=== PATIENT | female | born 1960 | race Caucasian/White ===

== ENCOUNTER → 2019-06-10 16:45 | Outpatient (CLI) | payer OTHER, SELFPAY ==
[2019-06-10 17:40] LABS: Add Manual Diff / Slide Review NO; Basophils Absolute Auto 0 /uL (0-100); Basophils Percent Auto 0.6 % (0-2); Eosinophils Absolute Auto 0 /uL (0-450); Eosinophils Percent Auto 0.6 % (2-4); Hematocrit 42.4 % (36-46); Hemoglobin 14.8 g/dL (12.0-16.0); Lymphocytes Absolute Auto 1600 /uL (1100-4500); Lymphocytes Percent Auto 25.4 % (25-40); Mean Corpuscular HGB Conc 34.8 % (30-36); Mean Corpuscular Hemoglobin 32.2 PG (26-34); Mean Corpuscular Volume 92.7 fL (80-100); Monocytes Absolute Auto 400 /uL (0-900); Monocytes Percent Auto 6.5 % (3-14); Neutrophils Absolute Auto 4300 /uL (1500-7000); Neutrophils Percent Auto 66.9 % (50-75); Platelet Count 229 X10^3/uL (150-400); Red Blood Cell Count 4.58 X10^6/uL (4.0-5.2); Red Cell Distribution Width 12.8 % (11.6-14.8); White Blood Cell Count 6.4 X10^3/uL (4.5-11.0)
[2019-06-10 18:00] LABS: Alanine Aminotransferase 15 IU/L (9-52); Albumin 4.8 g/dL (3.5-5.0); Albumin Globulin Ratio 1.6 (1.0-2.8); Alkaline Phosphatase 90 U/L (38-126); Aspartate Aminotransferase 24 IU/L (14-36); BUN Creatinine Ratio 21.4 (6-22); Bilirubin Total 0.4 mg/dL (0.2-1.3); Blood Urea Nitrogen 15 mg/dL (7-17); Calcium 10.1 mg/dL (8.4-10.2); Carbon Dioxide 25 mmol/L (22-32); Chloride 102 mmol/L (98-107); Estimated Glomerular Filt Rate > 60.0 mL/min (>60); Glucose 94 mg/dL (70-100); HEMOLYSIS < 15 (0-50); Potassium 4.6 mmol/L (3.4-5.1); Sodium 140 mmol/L (137-145); Total Protein 7.8 g/dL (6.3-8.2)
[2019-06-10 18:17] LABS: Vitamin D 25 Hydroxy (D3) 34.8 ng/mL (30.0-100.0)
[2019-06-10 18:31] LABS: Thyroid Stimulating Hormone 3.78 uIU/mL (0.47-4.68)
[2019-06-10 18:52] LABS: Erythrocyte Sedimentation Rate 11 MM/HR (0-20)
[2019-06-10 19:06] LABS: Folate 8.5 ng/mL (2.76-20.0)
== END ==
PROVIDERS: PCP Family Medicine; Visit Provider Family Medicine
DX: G47.00 Insomnia, unspecified (principal); R00.0 Tachycardia, unspecified; E03.9 Hypothyroidism, unspecified; R00.2 Palpitations
CPT/HCPCS: 36415; 80053; 82306; 82746; 84443; 85025; 85651

== ENCOUNTER → 2020-02-16 13:39 | Outpatient (CLI) | payer OTHER, SELFPAY ==
--- NOTE | 2020-02-16 | DI.RAD.S_ITS ---
PROCEDURE: XR CERVICAL SPINE 4V OR 5V INDICATIONS: CERVICAL SPINE PAIN WITH RADICULOPATHY TECHNIQUE: 5 total views of the cervical spine were acquired, including bilateral oblique views. COMPARISON: [facility], , MR CERVICAL SPINE WO CON, 02/16/2020, 13:56. (A prior cervical spine plain film from 2009 is not available from the archive for review at the time of this dictation.) FINDINGS: Bones: No fractures or dislocations to the T1 level. Oblique images demonstrate no bony foraminal stenoses. There is straightening of the normal cervical lordosis. No focal AP alignment abnormality is seen. Soft tissues: No prevertebral soft tissue swelling. The visualized lung apices are unremarkable. IMPRESSION: Straightening of the normal cervical lordosis is seen, which is commonly observed in patients with muscular spasm. Dictated by: Steve Minaya M.D. on 02/16/2020 at 14:23 Approved by: Steve Minaya M.D. on 02/16/2020 at 14:28
--- NOTE | 2020-02-16 | DI.MRI.S_ITS ---
PROCEDURE: MR CERVICAL SPINE WO CON INDICATIONS: CERVICAL DISC DISORDER TECHNIQUE: Noncontrast sagittal T1 spin echo and T2 fast spin echo, sagittal STIR, foraminal oblique sagittal T2 fast spin echo, and axial gradient echo or T2 fast spin echo through the cervical spine. COMPARISON: None. FINDINGS: Image quality: Excellent. Alignment and Curvature: There is normal bony alignment. Bone Marrow: Marrow demonstrates normal overall signal. Spinal Cord: Visualized spinal cord has normal size and signal. No cerebellar tonsillar herniation. Paraspinous Soft Tissues: No paravertebral masses. Prevertebral soft tissues are normal in thickness. C2-C3: Mild disc desiccation. Mild bilateral facet hypertrophy. Mild canal stenosis. Mild bilateral foraminal stenosis. C3-C4: Mild disc desiccation. Mild diffuse disc bulge. Mild facet and uncovertebral hypertrophy. Mild canal stenosis. Mild left foraminal stenosis. No right foraminal stenosis. C4-C5: Mild disc desiccation and diffuse disc bulge. Mild facet and uncovertebral hypertrophy bilaterally. Mild canal stenosis. Mild bilateral foraminal stenosis. C5-C6: Mild disc desiccation and diffuse disc bulge. Mild facet and uncovertebral hypertrophy bilaterally. Moderate canal stenosis. Mild bilateral foraminal stenosis. C6-C7: Mild disc desiccation and diffuse disc bulge. Mild facet and uncovertebral hypertrophy bilaterally. Mild canal stenosis. No foraminal stenosis. C7-T1: Normal appearance. IMPRESSION: 1. Multilevel degenerative disc and facet disease, as well as uncovertebral hypertrophy. 2. Mild multilevel canal and foraminal stenoses. No neural impingement. Dictated by: George Hudson M.D. on 02/16/2020 at 15:07 Approved by: George Hudson M.D. on 02/16/2020 at 15:11
== END ==
PROVIDERS: PCP Family Medicine; Referring Provider Family Medicine; Visit Provider Family Medicine
DX: M50.11 Cervical disc disorder with radiculopathy, high cervical region (principal); M48.02 Spinal stenosis, cervical region
CPT/HCPCS: 72050; 72141

== ENCOUNTER 2020-07-27 20:14 | Emergency (ER) | payer OTHER, SELFPAY ==
[2020-07-27 20:20] VITALS: BP 209/103; PULSE 133; PULSE 136; RESP 17; TEMP 36.7; O2SAT 98; O2SAT 99; BMI 23.2
--- NOTE | 2020-07-27 20:22 | DI.RAD.S_ITS ---
PROCEDURE: XR CHEST 1V INDICATIONS: chest pain TECHNIQUE: One view of the chest was acquired. COMPARISON: None. FINDINGS: Surgical changes and devices: None. Lungs and pleura: Lungs are clear. No pleural effusions or pneumothorax. Mediastinum: Mediastinal contours appear normal. Heart size is normal. Bones and chest wall: No suspicious bony lesions. Overlying soft tissues appear unremarkable. IMPRESSION: Normal for age, source of current chest pain symptoms is not seen. Dictated by: Tc Luo M.D. on 07/27/2020 at 21:16 Approved by: Tc Luo M.D. on 07/27/2020 at 21:16
[2020-07-27 20:30] VITALS: BP 196/99; PULSE 126; RESP 21; O2SAT 98
[2020-07-27 20:35] LABS: Add Manual Diff / Slide Review NO; Basophils Absolute Auto 100 /uL (0-100); Basophils Percent Auto 0.6 % (0-2); Eosinophils Absolute Auto 100 /uL (0-450); Eosinophils Percent Auto 1.5 % (2-4); Hematocrit 40.4 % (36-46); Hemoglobin 14.1 g/dL (12.0-16.0); Lymphocytes Absolute Auto 3800 /uL (1100-4500); Lymphocytes Percent Auto 45.4 % (25-40); Mean Corpuscular Volume 91.6 fL (80-100); Monocytes Absolute Auto 900 /uL (0-900); Monocytes Percent Auto 10.3 % (3-14); Neutrophils Absolute Auto 3500 /uL (1500-7000); Neutrophils Percent Auto 42.2 % (50-75); Platelet Count 236 X10^3/uL (150-400); Red Blood Cell Count 4.41 X10^6/uL (4.0-5.2); Red Cell Distribution Width 12.9 % (11.6-14.8); White Blood Cell Count 8.3 X10^3/uL (4.5-11.0)
[2020-07-27 20:43] LABS: INR 0.9 (0.9-1.3); Prothrombin Time 10.8 SECONDS (10.1-12.7)
[2020-07-27 20:46] LABS: PTT Partial Thromboplastin Tim 36 SECONDS (26.4-36.2)
[2020-07-27 20:48] LABS: Alanine Aminotransferase 26 IU/L (<35); Albumin 4.7 g/dL (3.5-5.0); Albumin Globulin Ratio 1.4 (1.0-2.8); Alkaline Phosphatase 102 U/L (38-126); Aspartate Aminotransferase 38 IU/L (14-36); BUN Creatinine Ratio 25.9 (6-22); Bilirubin Total 0.3 mg/dL (0.2-1.3); Blood Urea Nitrogen 21 mg/dL (7-17); Calcium 9.4 mg/dL (8.4-10.2); Carbon Dioxide 26 mmol/L (22-32); Chloride 102 mmol/L (98-107); Creatine Kinase 69 U/L (30-135); Estimated Glomerular Filt Rate > 60.0 mL/min (>60); Globulin 3.3 g/dL (1.7-4.1); Glucose 121 mg/dL (80-110); HEMOLYSIS 27 (0-50); Lipase 113 U/L (23-300); Magnesium 1.9 mg/dL (1.6-2.3); Potassium 3.6 mmol/L (3.4-5.1); Sodium 136 mmol/L (137-145)
[2020-07-27 20:59] LABS: Troponin I < 0.012 ng/mL (0.01-0.034)
[2020-07-27 21:00] VITALS: BP 179/86; PULSE 108; RESP 12; O2SAT 97
--- NOTE | 2020-07-27 21:18 | ED.ARRPALP ---
HPI - Arrhythmia/Palpitations General Chief Complaint: Arrhythmia/Palpitations Stated Complaint: RAPID HEART BEAT Time Seen by Provider: 07/27/20 20:23 Source: patient Mode of arrival: Ambulatory Limitations: no limitations History of Present Illness HPI narrative: Patient drove herself here. Complaints of palpitations/fast heartbeat. This has happened before. 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 Chawla in [place]. Patient states 1 year ago the same thing happen after her [id number] cooked and had shrimp in it. She is allergic to iodine. Was seen here for the same. Patient states feeling much better now. Heart rate 99. Feels less palpitations. Patient states tonight at 6:00 p.m. she ate at a restaurant and had fish and chips and unfortunately it was fried in with shrimp. Returned home around 7:00 p.m. at 7:30 p.m. immediately felt palpitations without chest pain dizziness or syncope. No rash no oral swelling no trouble breathing She took 12.5 mg of Benadryl and took her nightly dose of half tab of metoprolol. Now feeling much better. Again never had any chest pain or dyspnea or syncope or numbness tingling or weakness. MD complaint: rapid heart beat Related Data Home Medications Medication Instructions Recorded Confirmed ibuprofen [Advil] 200 mg PO PRN #0 01/30/11 Calcium Carbonate/Vitamin D PO QDAY #0 03/05/11 (#CALCIUM) cholecalciferol (vitamin D3) PO QDAY #0 03/05/11 [Vitamin D3] magnesium oxide 400 mg #0 02/02/17 multivitamin [Multiple Vitamins] 1 tab PO QDAY #0 02/02/17 omega 0-qal-xgd-fish oil [Fish Oil] 1,000 mg PO #0 02/02/17 diphenhydramine HCl [Benadryl 25 mg PO PRN PRN #0 05/12/17 Allergy] metoprolol succinate [Toprol XL] 6.25 mg PO QDAY #0 05/12/17 Allergies Allergy/AdvReac Type Severity Reaction Status Date / Time iodine [IODINE] Allergy Unknown Unverified 01/13/18 12:08 meperidine [From DEMEROL] Allergy Unknown Unverified 01/13/18 12:08 promethazine [From PHENERGAN] Allergy Unknown Unverified 01/13/18 12:08 Review of Systems Review of Systems Narrative: GENERAL: Denies chills, fatigue, malaise, fever, sweats. HEENT: Denies sinus pain, ear pain, sore throat, difficulty swallowing RESPIRATORY: Denies dyspnea, cough CARDIOVASCULAR: Denies chest pain, complains palpitations, denies edema, GASTROINTESTINAL: Denies nausea, vomiting, abdominal pain, diarrhea, constipation, melena. : Denies dysuria, frequency, hematuria MUSCULOSKELETAL: denies muscle or bony pain SKIN: Denies rash, skin lesions NEUROLOGIC: Denies weakness, headache, numbness, change in speech, confusion PSYCHIATRIC: No SI or HI or hallucinations ROS Unobtainable: All systems reviewed & are unremarkable except as noted in HPI and below Patient History Social History Smoking Status: Never smoker Smoking Status: Never smoker alcohol intake frequency: a few times a month Substance Use Type: does not use Exam Narrative Exam Narrative: GENERAL: patient appears stated age. Well-nourished, well-developed patient, in no distress, not toxic not dyspneic HEAD: Normocephalic. EYES: Pupils equal round and reactive. No scleral icterus. No injection no discharge ENT: Mucous membranes moist. No drooling no tongue elevation no trismus no malocclusion NECK: Trachea midline. Non tender CARDIOVASCULAR: Regular rate and rhythm without murmurs, gallops, or rubs. RESPIRATORY: Clear to auscultation. Breath sounds equal bilaterally. No wheezes, rales, or rhonchi. GASTROINTESTINAL: Abdomen soft, non-tender, nondistended. EXTREMITIES: No gross deformities. BACK: Nontender without deformity or crepitance. No flank tenderness. NEURO: AOx4. SKIN: Warm and dry PSYCH: Not anxious, is cooperative Initial Vital Signs Initial Vital Signs: Vital Signs Temperature 98.0 F 07/27/20 20:20 Pulse Rate 136 H 07/27/20 20:20 Respiratory Rate 17 07/27/20 20:20 Blood Pressure 209/103 H 07/27/20 20:20 Pulse Oximetry 99 07/27/20 20:20 Course Course Course Narrative: Symptoms have resolved. Drinking ice water it now. Orders Ordered: ED Orders 07/27/20 20:22 XR chest 1V Stat EKG-12 Lead Stat 07/27/20 20:26 Complete Blood Count AUTO DIFF Stat Comprehensive Metabolic Panel Stat Lipase Stat Magnesium Stat Partial Thromboplastin Time Stat Prothrombin Time INR Stat TSH w/ Reflex to FT4 Stat Troponin & CK Cardiac Panel Stat Reevaluation(s) Reevaluation #1: Feeling much better. Heart rate 99. Does not feel palpitations. Drinking ice water. Desires discharge home. Time: 21:20 Reevaluation #2: 158/83 heart rate 91. Patient 98% room air patient states no palpitations no symptoms and desires discharge home, no rash no oral swelling no dyspnea no chest pain Time: 21:45 Vital Signs Vital signs: Vital Signs - 8 hr 07/27/20 20:20 07/27/20 20:30 07/27/20 21:00 Temperature 98.0 F Pulse Rate 133 H 126 H 108 H Respiratory Rate 17 21 12 Blood Pressure 209/103 H 196/99 H 179/86 H Pulse Oximetry 98 98 97 07/27/20 21:30 Temperature Pulse Rate 93 H Respiratory Rate 14 Blood Pressure 158/83 H Pulse Oximetry 97 MDM - Arrhythmia/Palpitations Differential Diagnosis Differential diagnosis: Likely palpitations and other (Allergic reaction) Lab Data Attestation: I reviewed the patient's lab results. Result diagrams: 07/27/20 20:26 07/27/20 20:26 Labs: Lab Results 07/27/20 07/27/20 07/27/20 Range/Units 20:26 20:26 20:26 WBC 8.3 (4.5-11.0) X10^3/uL RBC 4.41 (4.0-5.2) X10^6/uL Hgb 14.1 (12.0-16.0) g/dL Hct 40.4 (36-46) % MCV 91.6 (80-100) fL MCH 32.0 (26-34) PG MCHC 35.0 (30-36) % RDW 12.9 (11.6-14.8) % Plt Count 236 (150-400) X10^3/uL Neut % (Auto) 42.2 L (50-75) % Lymph % (Auto) 45.4 H (25-40) % [place] % (Auto) 10.3 (3-14) % Eos % (Auto) 1.5 L (2-4) % Baso % (Auto) 0.6 (0-2) % Neut # (Auto) 3500 (9776-7719) /uL Lymph # (Auto) 3800 (3010-3537) /uL [place] # (Auto) 900 (0-900) /uL Eos # (Auto) 100 (0-450) /uL Baso # (Auto) 100 (0-100) /uL PT 10.8 (10.1-12.7) SECONDS INR 0.9 (0.9-1.3) APTT 36 (26.4-36.2) SECONDS Sodium 136 L (137-145) mmol/L Potassium 3.6 (3.4-5.1) mmol/L Chloride 102 (98-107) mmol/L Carbon Dioxide 26 (22-32) mmol/L BUN 21 H (7-17) mg/dL Creatinine 0.81 (0.52-1.04) mg/dL Estimated GFR > 60.0 (>60) mL/min BUN/Creatinine Ratio 25.9 H (6-22) Glucose 121 H (80-110) mg/dL Calcium 9.4 (8.4-10.2) mg/dL Magnesium 1.9 (1.6-2.3) mg/dL Total Bilirubin 0.3 (0.2-1.3) mg/dL AST 38 H (14-36) IU/L ALT 26 (<35) IU/L Alkaline Phosphatase 102 (38-126) U/L Total Creatine Kinase 69 (30-135) U/L CK-MB (CK-2) TNP CK-MB (CK-2) Rel Index TNP Troponin I < 0.012 (0.01-0.034) ng/mL Total Protein 8.0 (6.3-8.2) g/dL Albumin 4.7 (3.5-5.0) g/dL Globulin 3.3 (1.7-4.1) g/dL Albumin/Globulin Ratio 1.4 (1.0-2.8) Lipase 113 (23-300) U/L TSH (0.47-4.68) uIU/mL 07/27/20 Range/Units 20:26 WBC (4.5-11.0) X10^3/uL RBC (4.0-5.2) X10^6/uL Hgb (12.0-16.0) g/dL Hct (36-46) % MCV (80-100) fL MCH (26-34) PG MCHC (30-36) % RDW (11.6-14.8) % Plt Count (150-400) X10^3/uL Neut % (Auto) (50-75) % Lymph % (Auto) (25-40) % [place] % (Auto) (3-14) % Eos % (Auto) (2-4) % Baso % (Auto) (0-2) % Neut # (Auto) (5474-8645) /uL Lymph # (Auto) (7957-1025) /uL [place] # (Auto) (0-900) /uL Eos # (Auto) (0-450) /uL Baso # (Auto) (0-100) /uL PT (10.1-12.7) SECONDS INR (0.9-1.3) APTT (26.4-36.2) SECONDS Sodium (137-145) mmol/L Potassium (3.4-5.1) mmol/L Chloride (98-107) mmol/L Carbon Dioxide (22-32) mmol/L BUN (7-17) mg/dL Creatinine (0.52-1.04) mg/dL Estimated GFR (>60) mL/min BUN/Creatinine Ratio (6-22) Glucose (80-110) mg/dL Calcium (8.4-10.2) mg/dL Magnesium (1.6-2.3) mg/dL Total Bilirubin (0.2-1.3) mg/dL AST (14-36) IU/L ALT (<35) IU/L Alkaline Phosphatase (38-126) U/L Total Creatine Kinase (30-135) U/L CK-MB (CK-2) CK-MB (CK-2) Rel Index Troponin I (0.01-0.034) ng/mL Total Protein (6.3-8.2) g/dL Albumin (3.5-5.0) g/dL Globulin (1.7-4.1) g/dL Albumin/Globulin Ratio (1.0-2.8) Lipase (23-300) U/L TSH 1.50 (0.47-4.68) uIU/mL Imaging Data Chest x-ray: Radiologist's Impresson: [address] [address] XRay Report Signed Patient: Rianna Barney LMR#: [id number] : 1960Acct:[id number] Age/Sex: 60 / FDate of Service: 07/27/20 Loc: ED Accession Number: [id number] Procedure: XR chest 1V Ordering Provider: Tai Foley MD PROCEDURE: XR CHEST 1V INDICATIONS: chest pain TECHNIQUE: One view of the chest was acquired. COMPARISON: None. FINDINGS: Surgical changes and devices: None. Lungs and pleura: Lungs are clear. No pleural effusions or pneumothorax. Mediastinum: Mediastinal contours appear normal. Heart size is normal. Bones and chest wall: No suspicious bony lesions. Overlying soft tissues appear unremarkable. IMPRESSION: Normal for age, source of current chest pain symptoms is not seen. Dictated by: Tc Luo M.D. on 07/27/2020 at 21:16 Approved by: Tc Luo M.D. on 07/27/2020 at 21:16 ECG Data Attestation: I personally reviewed and interpreted this ECG as follows: Interpretation: Sinus tachycardia rate [address] elevation or depression. MDM Narrative Medical decision making narrative: No further laboratory studies or tests indicated. Patient is now a more treatment or observation. Desires discharge home. Denies any symptoms at this time. Appropriate for discharge home. Patient at baseline at this time. Discharge Plan Departure Patient Disposition: Home Clinical Impression: Allergic reaction Qualifiers: Encounter type: initial encounter Qualified Code(s): T78.40XA - Allergy, unspecified, initial encounter Discharge Date/Time: 07/27/20 22:02 Activity Restrictions/Additional Instructions: Return immediately for severe any palpitations or trouble breathing or rash or any swelling or trouble breathing. Continue home Benadryl as needed for palpitations. See your family doctor or coordinator hotels next week for recheck. Return if any questions or concerns or worsening symptoms Prescriptions: No Action ibuprofen [Advil] 200 MG tablet 200 mg PO PRN Qty: 0 RF: 0 cholecalciferol (vitamin D3) [Vitamin D3] 2,000 UNIT capsule PO QDAY Qty: 0 RF: 0 Calcium Carbonate/Vitamin D (#CALCIUM) PO QDAY Qty: 0 RF: 0 multivitamin [Multiple Vitamins] 1 EACH tablet 1 tab PO QDAY Qty: 0 RF: 0 magnesium oxide 400 MG tablet 400 mg Qty: 0 RF: 0 omega 7-qub-zco-fish oil [Fish Oil] 1,000 MG capsule 1,000 mg PO Qty: 0 RF: 0 metoprolol succinate [Toprol XL] 25 MG tablet extended release 24 hr 6.25 mg PO QDAY Qty: 0 RF: 0 diphenhydramine HCl [Benadryl Allergy] 25 MG tablet 25 mg PO PRN PRNQty: 0 RF: 0 Referrals: Kong Lassiter MD [Primary Care Provider] -
[2020-07-27 21:30] VITALS: BP 158/83; PULSE 93; RESP 14; O2SAT 97
== END 2020-07-27 22:02 | disposition home or self-care (01) ==
PROVIDERS: Emergency Provider Emergency Medicine; PCP Family Medicine
DX: T78.40XA Allergy, unspecified, initial encounter (principal); R07.9 Chest pain, unspecified
CPT/HCPCS: 36415; 71045; 80053; 82550; 83690; 83735; 84443; 84484; 85025; 85610; 85730; 93005; 93010; 99284

== ENCOUNTER → 2021-04-06 09:45 | Outpatient (CLI) | payer OTHER, SELFPAY ==
[2021-04-06 11:19] LABS: COVID19 -Nasal RAPID Negative (Negative)
== END ==
PROVIDERS: Visit Provider Physician Assistant
DX: Z20.822 Contact with and (suspected) exposure to COVID-19 (principal)
CPT/HCPCS: 87635

== ENCOUNTER → 2021-05-20 13:33 | Outpatient (CLI) | payer OTHER, SELFPAY ==
[2021-05-20 15:29] LABS: COVID19 -Nasal RAPID POSITIVE (Negative)
== END ==
PROVIDERS: Visit Provider Physician Assistant
DX: U07.1 COVID-19 (principal)
CPT/HCPCS: 87635